=== PATIENT | male | born 1990 | race Caucasian/White ===

== ENCOUNTER → 2016-02-24 | Outpatient (REF) ==
[~2016-02-24] MED LIST: FREESTYLE PREC1 EAC5 MC; GLUCOPHAGE850 MG/TAB PO; GLUCOSE TEST ST1 DEV MC; INSULIN R (N100 U/ML SQ; INSULIN SYRING1 EA11 SQ; NO HOME MEDICATIONS; NOVOLIN N100 U/ML SQ; NYSTATIN OR100 MU/ML PO
== END ==
LOC: ZLAB.WCH 10:49
DX: Z02.89 Encounter for other administrative examinations (principal)

== ENCOUNTER 2016-02-28 20:39 | Inpatient (IN) | payer MEDICAID ==
[~2016-02-28] VITALS: Ht 188 cm; Wt 146.6 kg
[~2016-02-28 20:39] MED LIST changes: -FREESTYLE PREC1 EAC5 MC; -GLUCOPHAGE850 MG/TAB PO; -GLUCOSE TEST ST1 DEV MC; -INSULIN R (N100 U/ML SQ; -INSULIN SYRING1 EA11 SQ; -NOVOLIN N100 U/ML SQ; -NYSTATIN OR100 MU/ML PO
[2016-02-28] MEDS ORDERED: GLUCOPHAGE850 MG/TAB PO (20:47)
[2016-02-28] MEDS ORDERED: NYSTATIN OR100 MU/ML PO (20:48)
[2016-02-28 21:47] LABS: HEMATOCRIT 49.1 % (42.0-52.0); HEMOGLOBIN 17.6 g/dl (13.5-18.0); MEAN CELL VOLUME 79 fl (80.0-100.0); MEAN CORPUSCULAR HEMOGLOBIN 29 pg (27.0-31.0); MEAN CORPUSCULAR HGB CONC 36 g/dl (33.0-37.0); MEAN PLATELET VOLUME 12.9 fl (7.4-10.4); PLATELET COUNT 238 K/mm3 (130-400); RED BLOOD COUNT 6.18 M/mm3 (4.20-5.60); REDCELL DISTRIBUTION WIDTH-CV 14.6 % (11.5-14.5); WHITE BLOOD COUNT 14.4 K/mm3 (4.8-10.8)
[2016-02-28 21:50] LABS: ADD PATHOLOGY DIFF REVIEW NO
[2016-02-28 21:53] LABS: ADJUSTED CALCIUM 9.4 mg/dL (8.4-10.2); ALBUMIN 4.8 gm/dL (3.5-5.0); BILIRUBIN,TOTAL 1.3 mg/dL (0.0-1.0); C-REACTIVE PROTEIN 1.8 mg/dL (0.0-0.9); CREATININE, serum 0.87 mg/dL (0.66-1.25); POTASSIUM 3.7 mmol/L (3.4-5.0); TOTAL PROTEIN 8.6 gm/dL (6.4-8.2)
[2016-02-28 22:17] LABS: ARTERIAL BLOOD GAS pH 7.15 (7.35-7.45)
[2016-02-28 22:18] LABS: BAND 23 % (0-10); EOSINOPHIL 1 % (0-4); METAMYELOCYTE 1 % (0-0); NEUTROPHILS 60 % (42.0-75.2); PLATELET ESTIMATE NORMAL (NORMAL); TOTAL CELLS COUNTED 100
[2016-02-28 22:18] LABS: ALLEN TEST YES; ALLENS TEST RESULT PASS; ARTERIAL BLD GAS O2 SATURATION 97.8 % (92-100); ARTERIAL BLD GAS TCO2 CT 5.7; ARTERIAL BLOOD GAS BASE EXCESS -21.1 (-2-2); ARTERIAL BLOOD GAS HCO3 5.2 meq/L (22-26); ARTERIAL BLOOD GAS PO2 116.9 mmHg (80-100); ATS? YES
[2016-02-28 22:55] LABS: LIPASE 7918 U/L (23-300)
[2016-02-28 23:51] LABS: PH 6 (5-8); SQUAMOUS EPITHELIAL 0-2 /hpf; URINE APPEARANCE Clear; URINE BACTERIA None Seen /hpf; URINE BILIRUBIN Negative (NEGATIVE); URINE BLOOD 2+ (NEGATIVE); URINE COLOR Yellow; URINE GLUCOSE 3+ (NEGATIVE); URINE KETONE 2+ (NEGATIVE); URINE RBC 0-2 /hpf; URINE UROBILINOGEN Negative (NEGATIVE); URINE WBC 0-2 /hpf
[2016-02-29] VITALS (1045 sets, daily range): BP systolic 104–151; BP diastolic 68–95; PULSE 107–138; TEMP 97.1–98.1; O2SAT 85–100
[2016-02-29 01:12] LABS: MAGNESIUM 2.3 mg/dL (1.6-2.3); PHOSPHOROUS 2.6 mg/dL (2.5-4.5)
[2016-02-29 01:40] LABS: CALCIUM 9.4 mg/dL (8.4-10.2); CREATININE, serum 0.76 mg/dL (0.66-1.25)
[2016-02-29 01:42] LABS: POTASSIUM 2.8 mmol/L (3.4-5.0)
[2016-02-29 03:21] LABS: ARTERIAL BLD GAS O2 SATURATION 98.1 % (92-100); ARTERIAL BLD GAS TCO2 CT 7.1; ARTERIAL BLOOD GAS HCO3 6.6 meq/L (22-26); ARTERIAL BLOOD GAS PHT 7.24 C (7.35-7.45); ARTERIAL BLOOD GAS PO2 120.3 mmHg (80-100); ARTERIAL BLOOD GAS PO2T 120.3 (80-100); ARTERIAL BLOOD GAS pH 7.24 (7.35-7.45); OXYHEMOGLOBIN 97.1 %
[2016-02-29 03:23] LABS: ALLEN TEST YES; ALLENS TEST RESULT PASS; ATS? YES
[2016-02-29 03:28] LABS: CALCIUM 8.9 mg/dL (8.4-10.2); CREATININE, serum 0.72 mg/dL (0.66-1.25)
[2016-02-29 03:37] LABS: POTASSIUM 2.4 mmol/L (3.4-5.0)
[2016-02-29 05:40] LABS: CALCIUM 8.5 mg/dL (8.4-10.2); CREATININE, serum 0.72 mg/dL (0.66-1.25)
[2016-02-29 05:59] LABS: POTASSIUM 2.5 mmol/L (3.4-5.0)
[2016-02-29 08:27] LABS: CALCIUM 8.5 mg/dL (8.4-10.2); CREATININE, serum 0.76 mg/dL (0.66-1.25)
[2016-02-29 08:40] LABS: POTASSIUM 2.1 mmol/L (3.4-5.0)
[2016-02-29 12:02] LABS: CALCIUM 8.6 mg/dL (8.4-10.2); CREATININE, serum 0.66 mg/dL (0.66-1.25)
[2016-02-29 12:21] LABS: POTASSIUM 1.9 mmol/L (3.4-5.0)
[2016-02-29 14:24] LABS: CALCIUM 8.7 mg/dL (8.4-10.2); CREATININE, serum 0.68 mg/dL (0.66-1.25)
[2016-02-29 14:26] LABS: POTASSIUM 2.3 mmol/L (3.4-5.0)
[2016-02-29 17:15] LABS: CALCIUM 8.6 mg/dL (8.4-10.2); CREATININE, serum 0.67 mg/dL (0.66-1.25)
[2016-02-29 17:16] LABS: POTASSIUM 2.7 mmol/L (3.4-5.0)
[2016-02-29 18:25] LABS: CALCIUM 8.6 mg/dL (8.4-10.2); CREATININE, serum 0.67 mg/dL (0.66-1.25)
[2016-02-29 18:31] LABS: POTASSIUM 2.6 mmol/L (3.4-5.0)
[2016-02-29 20:55] LABS: CALCIUM 8.6 mg/dL (8.4-10.2); CREATININE, serum 0.67 mg/dL (0.66-1.25); POTASSIUM 3.4 mmol/L (3.4-5.0)
[2016-02-29 22:15] LABS: CALCIUM 8.6 mg/dL (8.4-10.2); CREATININE, serum 0.7 mg/dL (0.66-1.25)
[2016-03-01] VITALS (720 sets, daily range): BP systolic 95–139; BP diastolic 62–86; PULSE 96–123; TEMP 97–99.2; O2SAT 70–100
[2016-03-01 00:55] LABS: CALCIUM 8.7 mg/dL (8.4-10.2); CREATININE, serum 0.7 mg/dL (0.66-1.25); POTASSIUM 3.8 mmol/L (3.4-5.0)
[2016-03-01 02:38] LABS: CALCIUM 8.7 mg/dL (8.4-10.2); CREATININE, serum 0.67 mg/dL (0.66-1.25); POTASSIUM 4.3 mmol/L (3.4-5.0)
[2016-03-01 05:36] LABS: CALCIUM 8.8 mg/dL (8.4-10.2); CREATININE, serum 0.71 mg/dL (0.66-1.25); POTASSIUM 4.1 mmol/L (3.4-5.0)
[2016-03-01 07:04] LABS: CALCIUM 8.9 mg/dL (8.4-10.2); CREATININE, serum 0.68 mg/dL (0.66-1.25); POTASSIUM 3.7 mmol/L (3.4-5.0)
[2016-03-01 08:34] LABS: CALCIUM 8.7 mg/dL (8.4-10.2); CREATININE, serum 0.68 mg/dL (0.66-1.25); POTASSIUM 3.7 mmol/L (3.4-5.0)
[2016-03-01 12:01] LABS: CALCIUM 8.6 mg/dL (8.4-10.2); CREATININE, serum 0.66 mg/dL (0.66-1.25); POTASSIUM 3.8 mmol/L (3.4-5.0)
[2016-03-01 14:21] LABS: CALCIUM 8.3 mg/dL (8.4-10.2); CREATININE, serum 0.61 mg/dL (0.66-1.25); POTASSIUM 3.5 mmol/L (3.4-5.0)
[2016-03-01 16:43] LABS: CALCIUM 8.1 mg/dL (8.4-10.2); CREATININE, serum 0.59 mg/dL (0.66-1.25); POTASSIUM 3.3 mmol/L (3.4-5.0)
[2016-03-01 18:22] LABS: CREATININE, serum 0.59 mg/dL (0.66-1.25); POTASSIUM 3.6 mmol/L (3.4-5.0)
[2016-03-01 20:35] LABS: CALCIUM 8.2 mg/dL (8.4-10.2); CREATININE, serum 0.59 mg/dL (0.66-1.25); POTASSIUM 3.5 mmol/L (3.4-5.0)
[2016-03-01 22:41] LABS: CALCIUM 8.1 mg/dL (8.4-10.2); CREATININE, serum 0.58 mg/dL (0.66-1.25); POTASSIUM 3.4 mmol/L (3.4-5.0)
[2016-03-02] VITALS (656 sets, daily range): BP systolic 115–130; BP diastolic 70–87; PULSE 80–118; TEMP 97.9–98.9; O2SAT 35–100
[2016-03-02 00:50] LABS: CALCIUM 8.1 mg/dL (8.4-10.2); CREATININE, serum 0.56 mg/dL (0.66-1.25); POTASSIUM 3.5 mmol/L (3.4-5.0)
[2016-03-02 02:33] LABS: CALCIUM 8.1 mg/dL (8.4-10.2); CREATININE, serum 0.57 mg/dL (0.66-1.25); POTASSIUM 3.6 mmol/L (3.4-5.0)
[2016-03-02 04:35] LABS: CALCIUM 8.1 mg/dL (8.4-10.2); CREATININE, serum 0.55 mg/dL (0.66-1.25); POTASSIUM 3.7 mmol/L (3.4-5.0)
[2016-03-02 06:18] LABS: MEAN CELL VOLUME 79 fl (80.0-100.0); MEAN CORPUSCULAR HGB CONC 36 g/dl (33.0-37.0); MEAN PLATELET VOLUME 12.7 fl (7.4-10.4); RED BLOOD COUNT 3.99 M/mm3 (4.20-5.60); REDCELL DISTRIBUTION WIDTH-CV 15.3 % (11.5-14.5); WHITE BLOOD COUNT 6.7 K/mm3 (4.8-10.8)
[2016-03-02 06:25] LABS: CALCIUM 8.2 mg/dL (8.4-10.2); CREATININE, serum 0.57 mg/dL (0.66-1.25); POTASSIUM 3.7 mmol/L (3.4-5.0)
[2016-03-02 06:32] LABS: HEMATOCRIT 31.6 % (42.0-52.0); HEMOGLOBIN 11.5 g/dl (13.5-18.0); MEAN CORPUSCULAR HEMOGLOBIN 29 pg (27.0-31.0); PLATELET COUNT 137 K/mm3 (130-400)
[2016-03-02 06:38] LABS: ADD PATHOLOGY DIFF REVIEW NO
[2016-03-02 08:24] LABS: BAND 7 % (0-10); BASOPHIL 2 % (0-2); EOSINOPHIL 4 % (0-4); NEUTROPHILS 46 % (42.0-75.2); TOTAL CELLS COUNTED 100
[2016-03-02 08:27] LABS: MICROCYTOSIS 2+
[2016-03-02 08:39] LABS: CALCIUM 8.1 mg/dL (8.4-10.2); CREATININE, serum 0.53 mg/dL (0.66-1.25); POTASSIUM 3.8 mmol/L (3.4-5.0)
[2016-03-02 10:28] LABS: CALCIUM 8.3 mg/dL (8.4-10.2); CREATININE, serum 0.55 mg/dL (0.66-1.25); POTASSIUM 3.9 mmol/L (3.4-5.0)
[2016-03-02 13:18] LABS: CALCIUM 8.1 mg/dL (8.4-10.2); CREATININE, serum 0.54 mg/dL (0.66-1.25); POTASSIUM 3.7 mmol/L (3.4-5.0)
[2016-03-02 15:14] LABS: CALCIUM 7.5 mg/dL (8.4-10.2); CREATININE, serum 0.47 mg/dL (0.66-1.25); POTASSIUM 3.6 mmol/L (3.4-5.0)
[2016-03-02 17:39] LABS: CALCIUM 6.1 mg/dL (8.4-10.2); CREATININE, serum 0.46 mg/dL (0.66-1.25)
[2016-03-02 18:52] LABS: CALCIUM 8.1 mg/dL (8.4-10.2); CREATININE, serum 0.57 mg/dL (0.66-1.25); POTASSIUM 3.7 mmol/L (3.4-5.0)
[2016-03-02 21:04] LABS: CALCIUM 7.8 mg/dL (8.4-10.2); CREATININE, serum 0.7 mg/dL (0.66-1.25); POTASSIUM 3.7 mmol/L (3.4-5.0)
[2016-03-02 22:58] LABS: CALCIUM 7.9 mg/dL (8.4-10.2); CREATININE, serum 0.64 mg/dL (0.66-1.25); POTASSIUM 3.6 mmol/L (3.4-5.0)
[2016-03-03] VITALS (13 sets, daily range): BP systolic 101–128; BP diastolic 62–91; PULSE 91–111; TEMP 96.9–98; O2SAT 71–100
[2016-03-03 00:48] LABS: CALCIUM 8.3 mg/dL (8.4-10.2); CREATININE, serum 0.58 mg/dL (0.66-1.25)
[2016-03-03 02:26] LABS: CREATININE, serum 0.53 mg/dL (0.66-1.25); POTASSIUM 3.6 mmol/L (3.4-5.0)
[2016-03-03 04:28] LABS: CALCIUM 7.8 mg/dL (8.4-10.2); CREATININE, serum 0.5 mg/dL (0.66-1.25); POTASSIUM 3.8 mmol/L (3.4-5.0)
[2016-03-03 06:22] LABS: MEAN CELL VOLUME 79 fl (80.0-100.0); MEAN CORPUSCULAR HGB CONC 36 g/dl (33.0-37.0); MEAN PLATELET VOLUME 12.2 fl (7.4-10.4); PLATELET COUNT 142 K/mm3 (130-400); RED BLOOD COUNT 3.88 M/mm3 (4.20-5.60); REDCELL DISTRIBUTION WIDTH-CV 15.4 % (11.5-14.5); WHITE BLOOD COUNT 5.4 K/mm3 (4.8-10.8)
[2016-03-03 06:24] LABS: ADD PATHOLOGY DIFF REVIEW NO; HEMATOCRIT 30.8 % (42.0-52.0); HEMOGLOBIN 11.1 g/dl (13.5-18.0); MEAN CORPUSCULAR HEMOGLOBIN 29 pg (27.0-31.0)
[2016-03-03 06:32] LABS: CREATININE, serum 0.47 mg/dL (0.66-1.25); POTASSIUM 3.6 mmol/L (3.4-5.0)
[2016-03-03 08:36] LABS: CALCIUM 8.3 mg/dL (8.4-10.2); CREATININE, serum 0.47 mg/dL (0.66-1.25); POTASSIUM 3.8 mmol/L (3.4-5.0)
[2016-03-03 11:00] LABS: CALCIUM 8.1 mg/dL (8.4-10.2); CREATININE, serum 0.5 mg/dL (0.66-1.25); POTASSIUM 4.1 mmol/L (3.4-5.0)
[2016-03-03 13:01] LABS: BAND 8 % (0-10); BASOPHIL 1 % (0-2); EOSINOPHIL 3 % (0-4); NEUTROPHILS 41 % (42.0-75.2); PLATELET ESTIMATE NORMAL (NORMAL); TOTAL CELLS COUNTED 100
[2016-03-03 13:03] LABS: ANISOCYTOSIS 1+
[2016-03-03 14:31] LABS: CALCIUM 8.4 mg/dL (8.4-10.2); CREATININE, serum 0.48 mg/dL (0.66-1.25); POTASSIUM 3.8 mmol/L (3.4-5.0)
[2016-03-03 16:44] LABS: CALCIUM 8.1 mg/dL (8.4-10.2); CREATININE, serum 0.57 mg/dL (0.66-1.25); POTASSIUM 3.9 mmol/L (3.4-5.0)
[2016-03-03 20:13] LABS: CREATININE, serum 0.57 mg/dL (0.66-1.25)
[2016-03-04] VITALS (8 sets, daily range): BP systolic 109–135; BP diastolic 66–83; PULSE 71–100; TEMP 97.9–99; O2SAT 77–100
[2016-03-04 00:36] LABS: CALCIUM 7.9 mg/dL (8.4-10.2); CREATININE, serum 0.49 mg/dL (0.66-1.25); POTASSIUM 3.6 mmol/L (3.4-5.0)
[2016-03-04 04:58] LABS: CALCIUM 7.9 mg/dL (8.4-10.2); CREATININE, serum 0.46 mg/dL (0.66-1.25); POTASSIUM 3.5 mmol/L (3.4-5.0)
[2016-03-04 09:03] LABS: ANION GAP 6 mmol/L (7-16); CALCIUM 6.8 mg/dL (8.4-10.2); CARBON DIOXIDE 22 mmol/L (22-30); CHLORIDE 109 mmol/L (98-107); CREATININE, serum 0.45 mg/dL (0.66-1.25); GLUCOSE 240 mg/dL (74-106); POTASSIUM 3.4 mmol/L (3.4-5.0); SODIUM 137 mmol/L (137-145)
[2016-03-04 09:10] LABS: BLOOD UREA NITROGEN < 2 mg/dL (9-20)
[2016-03-04 16:31] LABS: CALCIUM 8.1 mg/dL (8.4-10.2); CREATININE, serum 0.67 mg/dL (0.66-1.25); POTASSIUM 3.9 mmol/L (3.4-5.0)
[2016-03-04 18:25] LABS: CALCIUM 8.3 mg/dL (8.4-10.2); CREATININE, serum 0.55 mg/dL (0.66-1.25); POTASSIUM 3.7 mmol/L (3.4-5.0)
[2016-03-05] VITALS (9 sets, daily range): BP systolic 100–122; BP diastolic 51–76; PULSE 71–95; TEMP 96.5–98.3; O2SAT 97
[2016-03-05 05:22] LABS: MEAN CORPUSCULAR HGB CONC 34 g/dl (33.0-37.0); MEAN PLATELET VOLUME 11.7 fl (7.4-10.4); PLATELET COUNT 133 K/mm3 (130-400); RED BLOOD COUNT 3.75 M/mm3 (4.20-5.60); WHITE BLOOD COUNT 4.7 K/mm3 (4.8-10.8)
[2016-03-05 05:36] LABS: CALCIUM 8.2 mg/dL (8.4-10.2); CREATININE, serum 0.45 mg/dL (0.66-1.25); POTASSIUM 3.5 mmol/L (3.4-5.0)
[2016-03-05 05:49] LABS: ADD PATHOLOGY DIFF REVIEW NO; HEMATOCRIT 31.3 % (42.0-52.0); HEMOGLOBIN 10.7 g/dl (13.5-18.0); MEAN CELL VOLUME 84 fl (80.0-100.0); MEAN CORPUSCULAR HEMOGLOBIN 29 pg (27.0-31.0)
[2016-03-05 06:17] LABS: BAND 21 % (0-10); BASOPHIL 1 % (0-2); METAMYELOCYTE 2 % (0-0); NEUTROPHILS 30 % (42.0-75.2); PLATELET ESTIMATE NORMAL (NORMAL); TOTAL CELLS COUNTED 100
[2016-03-06 00:18] VITALS: BP 121/64; PULSE 81; TEMP 98.6
[2016-03-06 04:13] VITALS: BP 120/55; PULSE 69; TEMP 97.8
[2016-03-06 07:56] VITALS: BP 122/58; PULSE 76; TEMP 97.7
[2016-03-06] MEDS ORDERED: INSULIN R (N100 U/ML SQ ×2 (10:11→10:24)
[2016-03-06] MEDS ORDERED: NOVOLIN N100 U/ML SQ ×2 (10:11)
[2016-03-06] MEDS ORDERED: FREESTYLE PREC1 EAC5 MC (10:30)
[2016-03-06] MEDS ORDERED: GLUCOSE TEST ST1 DEV MC (10:30)
[2016-03-06] MEDS ORDERED: INSULIN SYRING1 EA11 SQ (10:37)
[2016-03-06 11:48] VITALS: BP 118/63; PULSE 84; TEMP 98.2
== END 2016-03-06 15:57 | disposition home or self-care (01) | DRG 638 ==
LOC: COL.ER 20:39 → IMCU 22:51 → ICU 22:51 → MEDICAL 03-02 15:44 → ICU 03-02 19:50 → MEDICAL 03-02 19:50 → IMCU 03-03 18:15 → ICU 03-03 18:15 → IMCU 03-03 18:15 → MEDICAL 03-05 13:35 → IMCU 03-05 13:35 → MEDICAL 03-06 15:57
PROVIDERS: Family Medicine; Internal Medicine; Nurse Practitioner Family; Physician Assistant
PROC: 02HV33Z Insertion of Infusion Device into Superior Vena Cava, Percutaneous Approach (ICD-10-PCS; principal; 2016-02-29)
DX: E13.10 Other specified diabetes mellitus with ketoacidosis without coma (principal); E87.0 Hyperosmolality and hypernatremia; Z68.42 Body mass index [BMI] 45.0-49.9, adult; Z87.891 Personal history of nicotine dependence; E87.6 Hypokalemia; E66.01 Morbid (severe) obesity due to excess calories; R00.0 Tachycardia, unspecified
CPT/HCPCS: 99223-AI; 99232-AI; 99233-AI; 99239; C1751; C1894; C9113; J1644; J1650; J1815; J2405; J2550; J2765; J3475; J3480; J7030; Q9967

== ENCOUNTER 2016-12-31 15:23 | Emergency (ER) | payer MEDICAID ==
[~2016-12-31] VITALS: Ht 188 cm; Wt 164.5 kg
[~2016-12-31 15:23] MED LIST changes: +FREESTYLE PREC1 EAC5 MC; +GLUCOPHAGE850 MG/TAB PO; +GLUCOSE TEST ST1 DEV MC; +INSULIN R (N100 U/ML SQ; +INSULIN SYRING1 EA11 SQ; +NOVOLIN N100 U/ML SQ; +NYSTATIN OR100 MU/ML PO
[2016-12-31 15:25] VITALS: TEMP 98.1
[2016-12-31] MEDS ORDERED: LEVEMIR SQ (15:29)
[2016-12-31] MEDS ORDERED: NOVOLIN R100 U/ML SQ (15:31)
[2016-12-31] MEDS ORDERED: PRINIVIL2.5 MG PO (15:31)
[2016-12-31] MEDS ORDERED: ASPIRIN 81M81 MG/TA2 PO (15:32)
[2016-12-31 16:16] LABS: BASO # 0.1 (0.0-0.2); BASO % 0.5 % (0.0-2.0); EOS # 0.1 (0.0-0.7); EOS % 1.2 % (0-4.0); GRAN # 5.5 (1.4-6.5); HEMATOCRIT 43.9 % (42.0-52.0); HEMOGLOBIN 14.9 g/dl (13.5-18.0); LYMPH % 31.8 % (20.0-51.0); MEAN CELL VOLUME 82 fl (80.0-100.0); MEAN CORPUSCULAR HEMOGLOBIN 28 pg (27.0-31.0); MEAN CORPUSCULAR HGB CONC 34 g/dl (33.0-37.0); MEAN PLATELET VOLUME 12.2 fl (7.4-10.4); MONO # 0.7 (0.1-0.6); PLATELET COUNT 149 K/mm3 (130-400); RED BLOOD COUNT 5.37 M/mm3 (4.20-5.60); WHITE BLOOD COUNT 9.4 K/mm3 (4.8-10.8)
[2016-12-31 16:21] LABS: ADJUSTED CALCIUM 9.1 mg/dL (8.4-10.2); ALANINE AMINOTRANSFERASE 58 U/L (21-72); ALBUMIN 4.3 gm/dL (3.5-5.0); ALKALINE PHOSPHATASE 79 U/L (50-136); ANION GAP 11 mmol/L (7-16); BILIRUBIN,TOTAL 0.5 mg/dL (0.0-1.0); BLOOD UREA NITROGEN 12 mg/dL (9-20); CALCIUM 9.3 mg/dL (8.4-10.2); CARBON DIOXIDE 22 mmol/L (22-30); CHLORIDE 104 mmol/L (98-107); CREATININE, serum 0.67 mg/dL (0.66-1.25); GLUCOSE 242 mg/dL (74-106); POTASSIUM 4.2 mmol/L (3.4-5.0); SODIUM 137 mmol/L (137-145); TOTAL PROTEIN 7.4 gm/dL (6.4-8.2)
[2016-12-31 16:27] LABS: COLLECTION METHOD CLEAN CATCH
[2016-12-31 16:38] LABS: MUCOUS Present /lpf; PH 5 (5-8); SQUAMOUS EPITHELIAL None Seen /hpf; URINE APPEARANCE Clear; URINE BACTERIA None Seen /hpf; URINE BILIRUBIN Negative (NEGATIVE); URINE BLOOD Negative (NEGATIVE); URINE COLOR Yellow; URINE GLUCOSE 3+ (NEGATIVE); URINE KETONE Negative (NEGATIVE); URINE LEUKOCYTE ESTERASE Negative (NEGATIVE); URINE PROTEIN(semi-quant) 1+ (NEGATIVE); URINE RBC 0-2 /hpf; URINE UROBILINOGEN Negative (NEGATIVE)
[2016-12-31 16:43] LABS: ACETONE,SERUM NEGATIVE
[2016-12-31 17:28] VITALS: BP 122/78; PULSE 69
== END 2016-12-31 17:30 | disposition home or self-care (01) ==
LOC: COL.ER 15:23
PROVIDERS: Emergency Medicine
DX: E11.65 Type 2 diabetes mellitus with hyperglycemia (principal); E66.9 Obesity, unspecified; Z79.4 Long term (current) use of insulin; Z79.82 Long term (current) use of aspirin
CPT/HCPCS: J7030

== ENCOUNTER 2017-06-13 16:22 | Emergency (ER) | payer MEDICAID ==
[~2017-06-13] VITALS: Ht 188 cm; Wt 154.5 kg
[~2017-06-13 16:22] MED LIST changes: +ASPIRIN 81M81 MG/TA2 PO; +LEVEMIR SQ; +NOVOLIN R100 U/ML SQ; +PRINIVIL2.5 MG PO
[2017-06-13 16:26] VITALS: BP 122/82; TEMP 99.1
[2017-06-13] MEDS ORDERED: TYLENOL 500MG500 MG PO (16:38)
[2017-06-13 18:47] VITALS: PULSE 103
== END 2017-06-13 18:48 | disposition home or self-care (01) ==
LOC: COL.ER 16:22
DX: S92.321A Displaced fracture of second metatarsal bone, right foot, initial encounter for closed fracture (principal); E11.9 Type 2 diabetes mellitus without complications; Z79.4 Long term (current) use of insulin; Z79.82 Long term (current) use of aspirin; W20.8XXA Other cause of strike by thrown, projected or falling object, initial encounter
CPT/HCPCS: Q4045